=== PATIENT | female | born 1950 | race Hispanic/Latino ===

== ENCOUNTER → 2020-10-29 | Outpatient (CLI) | payer MEDICARE ==
[~2020-10-29] MED LIST: ASPIR 8181 MG; ATORVASTATIN CA20 MG PO; FISH OIL 1,2001 EAC1; HYDROXYZINE HCL25 MG PO; LOSARTAN-HCTZ1 EAC1; METFORMIN HCL500 MG PO; NAPROXEN250 MG PO; TYLENOL WITH C1 EACH PO; VITAMIN D1000 UNIT; ZOFRAN ODT4 MG SL
== END ==
LOC: NM 09:09
PROVIDERS: ATTEND Internal Medicine Interventional Cardiology
DX: I20.8 Other forms of angina pectoris (principal)
CPT/HCPCS: 78452; 93017; A9502